=== PATIENT | female | born 1980 | race Caucasian/White ===

== ENCOUNTER → 2020-04-15 | Outpatient (CLI) | payer BC ==
[~2020-04-15] MED LIST: MOTRIN 600600 MG/TAB PO; PERCOCET 325 MG1 TA2 PO; PRENATAL VITAMI1 TAB PO
== END ==
LOC: MC.RAD 17:00
DX: Z12.31 Encounter for screening mammogram for malignant neoplasm of breast (principal)

== ENCOUNTER → 2021-05-21 | Outpatient (CLI) | payer BC | LOC: MC.RAD 07:27 | DX: Z12.31 Encounter for screening mammogram for malignant neoplasm of breast (principal) ==

== ENCOUNTER → 2023-08-11 | Outpatient (CLI) | payer BC | LOC: MC.RAD 07:12 | DX: Z12.31 Encounter for screening mammogram for malignant neoplasm of breast (principal) ==